=== PATIENT | male | born 1985 | race Caucasian/White ===

== ENCOUNTER → 2016-08-14 | Day surgery (SDC) | payer BC | END | disposition home or self-care (01) | LOC: SDCH 10:15 | DX: D12.0 Benign neoplasm of cecum (principal); R10.12 Left upper quadrant pain; M54.9 Dorsalgia, unspecified; Z88.0 Allergy status to penicillin; F17.210 Nicotine dependence, cigarettes, uncomplicated; M71.9 Bursopathy, unspecified; G43.909 Migraine, unspecified, not intractable, without status migrainosus | CPT/HCPCS: J2704 ==